=== PATIENT | male | born 1960 | race Caucasian/White ===

== ENCOUNTER 2017-05-23 19:55 | Inpatient (IN) | payer OTHER ==
[~2017-05-23] VITALS: Ht 200.7 cm; Wt 71.0 kg
[2017-05-23 23:00] VITALS: BP 116/74; RESP 18
[2017-05-24 02:00] VITALS: BP 109/70; RESP 20
[2017-05-24] MEDS ORDERED: morphine 2 MG INJ IV PRN (02:30)
[2017-05-24] MEDS ORDERED: ONDANSETRON 4 MG INJ IV PRN (02:30)
[2017-05-24 02:32] LABS: ADD UMIC NO; UR ASCORBIC ACID NEGATIVE (NEGATIVE); UR BILIRUBIN (Dip) NEGATIVE (NEGATIVE); UR BLOOD (Dip) NEGATIVE (NEGATIVE); UR CLARITY CLEAR (CLEAR); UR COLOR YELLOW (YELLOW); UR GLUCOSE (Dip) NEGATIVE (NEGATIVE); UR KETONES (Dip) NEGATIVE (NEGATIVE); UR LEUKOCYTE ESTERASE (Dip) NEGATIVE Leu/ul (NEGATIVE); UR NITRITE (Dip) NEGATIVE (NEGATIVE); UR SPECIFIC GRAVITY (Dip) 1.012 (1.003-1.030); UR TOTAL PROTEIN (Dip) NEGATIVE (NEGATIVE); UR UROBILINOGEN (Dip) NEGATIVE (NEGATIVE)
[2017-05-24 02:44] VITALS: Ht 200.7 cm; Wt 71.0 kg
[2017-05-24] MEDS ORDERED: MAGNESIUM HYDROXIDE 30ML CUP PO PRN (03:00)
[2017-05-24] MEDS ORDERED: ACETAMINOPHEN 325 MG TAB PO PRN (03:00)
[2017-05-24] MEDS ORDERED: BISACODYL 10 MG SUPP PR PRN (03:00)
[2017-05-24] MEDS ORDERED: LACTULOSE 30ML CUP PO PRN (03:00)
[2017-05-24 07:37] LABS: BASOPHILS % 0.2 % (0.0-2.0); EOSINOPHILS # 0.1 10^3/ul (0.0-0.5); EOSINOPHILS % 0.9 % (0.0-7.0); HEMATOCRIT 28.8 % (42.0-52.0); HEMOGLOBIN 9.7 g/dl (14.0-18.0); LYMPHOCYTES # 1.8 10^3/ul (0.8-2.9); LYMPHOCYTES % 19.9 % (15.0-51.0); MEAN CORPUSCULAR HEMOGLOBIN 31.3 pg (29.0-33.0); MEAN CORPUSCULAR HGB CONC 33.7 g/dl (32.0-37.0); MEAN CORPUSCULAR VOLUME 92.9 fl (82.0-101.0); MEAN PLATELET VOLUME 9.7 fl (7.4-10.4); MONOCYTE # 0.7 10^3/ul (0.3-0.9); NEUTROPHIL # 6.5 10^3/ul (1.6-7.5); PLATELET COUNT 277 10^3/UL (140-415); RED CELL DISTRIBUTION WIDTH 12.9 % (11.5-14.5); WHITE BLOOD COUNT 9.2 10^3/ul (4.8-10.8)
[2017-05-24 08:05] VITALS: BP 114/65; RESP 18
[2017-05-24 08:10] LABS: ALBUMIN 3.3 g/dl (3.3-4.9); ALBUMIN/GLOBULIN RATIO 0.84; BILIRUBIN,INDIRECT 1.9 mg/dl (0-1.1); BILIRUBIN,TOTAL 1.9 mg/dl (0.2-1.3); CREATININE 0.76 mg/dl (0.61-1.24); POTASSIUM 3.8 mmol/L (3.5-5.1); TOTAL PROTEIN 7.2 g/dl (6.1-8.1)
[2017-05-24] MEDS: POLYETHYLENE GLYCOL 17 GM PACKET PO SCH (08:48)
[2017-05-24] MEDS: FERROUS SULFATE (EC) 325 MG TAB PO SCH (08:49)
[2017-05-24] MEDS: FAMOTIDINE 20 MG TAB PO SCH ×2 (08:50→21:38)
[2017-05-24] MEDS: morphine (ER) 15 MG TAB PO SCH ×2 (08:50→21:39)
[2017-05-24] MEDS: DOCUSATE SODIUM 100 MG CAP PO SCH ×3 (08:50→21:34)
[2017-05-24] MEDS: ENOXAPARIN 40 MG/0.4 ML SYG SC SCH (08:51)
[2017-05-24] MEDS: METOPROLOL 25 MG TAB PO SCH ×2 (08:52→21:37)
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
[2017-05-24 20:00] VITALS: BP 111/68; RESP 18
[2017-05-24] MEDS: SENNA TAB PO SCH ×2 (21:00→21:34)
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
[2017-05-24 21:37] VITALS: BP 112/67; PULSE 101
[2017-05-25 02:00] VITALS: BP 118/65; RESP 18
[2017-05-25 07:30] VITALS: BP 112/79; RESP 2
[2017-05-25] MEDS: morphine (ER) 15 MG TAB PO SCH ×2 (08:01→21:09)
[2017-05-25] MEDS: DOCUSATE SODIUM 100 MG CAP PO SCH ×2 (08:02→21:08)
[2017-05-25] MEDS: METOPROLOL 25 MG TAB PO SCH ×2 (08:02→21:08)
[2017-05-25] MEDS: FERROUS SULFATE (EC) 325 MG TAB PO SCH (08:02)
[2017-05-25] MEDS: POLYETHYLENE GLYCOL 17 GM PACKET PO SCH (08:02)
[2017-05-25] MEDS: FAMOTIDINE 20 MG TAB PO SCH ×2 (08:02→21:08)
[2017-05-25] MEDS: ENOXAPARIN 40 MG/0.4 ML SYG SC SCH (08:04)
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
[2017-05-25 14:00] VITALS: BP 116/73; RESP 20
[2017-05-25 20:00] VITALS: BP 123/69; RESP 18
[2017-05-25] MEDS: SENNA TAB PO SCH (21:08)
[2017-05-26 02:00] VITALS: BP 119/64; RESP 18
[2017-05-26 07:00] VITALS: BP 116/75; RESP 18
[2017-05-26] MEDS: ENOXAPARIN 40 MG/0.4 ML SYG SC SCH (08:39)
[2017-05-26] MEDS: POLYETHYLENE GLYCOL 17 GM PACKET PO SCH (08:39)
[2017-05-26] MEDS: DOCUSATE SODIUM 100 MG CAP PO SCH ×2 (08:41→20:05)
[2017-05-26] MEDS: METOPROLOL 25 MG TAB PO SCH ×2 (08:41→20:06)
[2017-05-26] MEDS: FAMOTIDINE 20 MG TAB PO SCH ×2 (08:41→20:05)
[2017-05-26] MEDS: morphine (ER) 15 MG TAB PO SCH ×2 (08:41→20:05)
[2017-05-26] MEDS: FERROUS SULFATE (EC) 325 MG TAB PO SCH (08:42)
[2017-05-26 20:00] VITALS: BP 119/76; RESP 18
[2017-05-26] MEDS: SENNA TAB PO SCH (20:05)
[2017-05-27 02:00] VITALS: BP 112/70; RESP 18
[2017-05-27 07:30] VITALS: RESP 20
[2017-05-27] MEDS: HYDROCODONE/APAP (5/325) TAB PO PRN (08:56)
[2017-05-27] MEDS: DOCUSATE SODIUM 100 MG CAP PO SCH ×2 (09:41→20:29)
[2017-05-27] MEDS: METOPROLOL 25 MG TAB PO SCH ×2 (09:42→20:29)
[2017-05-27] MEDS: FAMOTIDINE 20 MG TAB PO SCH ×2 (09:47→20:30)
[2017-05-27] MEDS: POLYETHYLENE GLYCOL 17 GM PACKET PO SCH (09:47)
[2017-05-27] MEDS: FERROUS SULFATE (EC) 325 MG TAB PO SCH (09:47)
[2017-05-27] MEDS: ENOXAPARIN 40 MG/0.4 ML SYG SC SCH (09:54)
[2017-05-27] MEDS: morphine (ER) 15 MG TAB PO SCH ×2 (09:55→20:30)
--- NOTE | 2017-05-27 12:10 | CONS ---
Date/Time of Note Date/Time of Note DATE: 05/27/17 TIME: 12:08 Consult Date/Type/Reason Admit Date/Time May 23, 2017 at 22:38 Objective Vital Signs Date Time Temp Pulse Resp B/P Pulse Ox O2 Delivery O2 Flow Rate FiO2 05/27/17 07:30 98.7 98 20 95 Intake and Output 05/26/17 05/26/17 05/27/17 15:00 23:00 07:00 Intake Total 1920 ml 1200 ml Output Total 800 ml 1000 ml Balance 1120 ml 200 ml INTERDISCIPLINARY TEAM CONFERENCE BOWEL- Cont BLADDER-Cont SKIN- intact OT- DRESSING-mod BATHING-mod TOILETING-mod PT- BED MOBILITY-min TRANSFERS-mod x 2 W.C. MOBILITY-min SPEECH- COGNITION-MS A/P- Interdisciplinary team conference held today. Please see interdisciplinary sheet. Working toward d.c. on 06/01 with post discharge follow up of physical therapy, occupational therapy. Results/Medications Result Diagram: 05/24/17 0620 05/24/17 0620 Medications Current Medications Enoxaparin Sodium (Lovenox) 40 mg DAILY SC Last administered on 05/27/17 09:54 ; Admin Dose 40 MG; Start 05/24/17 at 09:00 Famotidine (Pepcid) 20 mg BID PO Last administered on 05/27/17 09:47; Admin Dose 20 MG; Start 05/24/17 at 09:00 Ferrous Sulfate (Ferrous Sulfate (Ec)) 325 mg DAILY PO Last administered on 09:47; Admin Dose 325 MG; Start 05/24/17 at 09:00 Metoprolol Tartrate (Lopressor) 25 mg BID PO Last administered on 05/27/17 09: 42; Admin Dose 25 MG; Start 05/24/17 at 09:00 Morphine Sulfate (Ms Contin (Er)) 15 mg BID PO Last administered on 05/27/17 09:55; Admin Dose 15 MG; Start 05/24/17 at 09:00 Morphine Sulfate (morphine) 2 mg Q4H PRN IV PAIN LEVEL 7-10; Start 05/24/17 at 02:30 Ondansetron HCl (Zofran Inj) 4 mg Q4H PRN IV NAUSEA AND/OR VOMITING; Start at 02:30 Polyethylene Glycol (Miralax) 17 gm DAILY PO Last administered on 05/27/17 09: 47; Admin Dose 17 GM; Start 05/24/17 at 09:00 Docusate Sodium (Colace) 100 mg BID PO Last administered on 05/27/17 09:41; Admin Dose 100 MG; Start 05/24/17 at 09:00 Senna (Senokot) 1 tab HS PO Last administered on 05/26/17 20:05; Admin Dose 1 TAB; Start 05/24/17 at 21:00 Acetaminophen (Tylenol Tab) 650 mg Q4H PRN PO PAIN; Start 05/24/17 at 03:00 Bisacodyl (Dulcolax Supp) 10 mg DAILY PRN [place] CONSTIPATION; Start 05/24/17 at 03 :00 Magnesium Hydroxide (Milk Of Mag) 30 ml BID PRN PO CONSTIPATION; Start at 03:00 Lactulose (Enulose) 20 gm DAILY PRN PO CONSTIPATION; Start 05/24/17 at 03:00 Acetaminophen/ Hydrocodone Bitart ([place] (5/325)) 1 tab Q4H PRN PO BREAKTHROUGH PAIN Last administered on 05/27/17 08:56; Admin Dose 1 TAB; Start 05/25/17 at 15:00 GERMÁN CARRANZA MD May 27, 2017 12:10
[2017-05-27 14:00] VITALS: BP 112/70; RESP 18
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
[2017-05-27 20:00] VITALS: BP 113/68; PULSE 102; RESP 18
[2017-05-27] MEDS: SENNA TAB PO SCH (20:29)
[2017-05-28 02:00] VITALS: BP 115/72; PULSE 105; RESP 18
[2017-05-28] MEDS: morphine (ER) 15 MG TAB PO SCH ×2 (08:29→20:50)
[2017-05-28] MEDS: FERROUS SULFATE (EC) 325 MG TAB PO SCH (08:30)
[2017-05-28] MEDS: DOCUSATE SODIUM 100 MG CAP PO SCH ×2 (08:30→20:49)
[2017-05-28] MEDS: FAMOTIDINE 20 MG TAB PO SCH ×2 (08:30→20:49)
[2017-05-28] MEDS: METOPROLOL 25 MG TAB PO SCH ×2 (08:30→20:51)
[2017-05-28] MEDS: ENOXAPARIN 40 MG/0.4 ML SYG SC SCH (09:45)
[2017-05-28] MEDS: POLYETHYLENE GLYCOL 17 GM PACKET PO SCH (09:45)
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
[2017-05-28 20:00] VITALS: BP 115/74; PULSE 104; RESP 18
[2017-05-28] MEDS: SENNA TAB PO SCH (20:49)
[2017-05-29 02:00] VITALS: BP 108/72; PULSE 96; RESP 16
[2017-05-29 08:00] VITALS: BP 119/77; PULSE 100; RESP 18
[2017-05-29] MEDS: ENOXAPARIN 40 MG/0.4 ML SYG SC SCH (08:44)
[2017-05-29] MEDS: POLYETHYLENE GLYCOL 17 GM PACKET PO SCH (08:45)
[2017-05-29] MEDS: METOPROLOL 25 MG TAB PO SCH ×2 (08:45→20:54)
[2017-05-29] MEDS: FERROUS SULFATE (EC) 325 MG TAB PO SCH (08:45)
[2017-05-29] MEDS: FAMOTIDINE 20 MG TAB PO SCH ×2 (08:45→20:52)
[2017-05-29] MEDS: DOCUSATE SODIUM 100 MG CAP PO SCH ×2 (08:45→20:52)
[2017-05-29] MEDS: morphine (ER) 15 MG TAB PO SCH (08:46)
[2017-05-29] MEDS: oxyCODONE (CR) 10 MG TAB [oxyCONTIN] PO SCH ×2 (11:58→20:53)
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
[2017-05-29 20:08] VITALS: BP 117/76; RESP 18
[2017-05-29] MEDS: SENNA TAB PO SCH (20:52)
[2017-05-30 02:00] VITALS: BP 144/68; RESP 18
[2017-05-30 07:00] VITALS: BP 109/70; RESP 18
[2017-05-30] MEDS: METOPROLOL 25 MG TAB PO SCH ×2 (08:30→20:56)
[2017-05-30] MEDS: POLYETHYLENE GLYCOL 17 GM PACKET PO SCH (08:30)
[2017-05-30] MEDS: DOCUSATE SODIUM 100 MG CAP PO SCH ×2 (08:30→20:55)
[2017-05-30] MEDS: oxyCODONE (CR) 10 MG TAB [oxyCONTIN] PO SCH ×3 (08:30→20:55)
[2017-05-30] MEDS: FAMOTIDINE 20 MG TAB PO SCH ×2 (08:30→20:56)
[2017-05-30] MEDS: FERROUS SULFATE (EC) 325 MG TAB PO SCH (08:30)
[2017-05-30] MEDS: ENOXAPARIN 40 MG/0.4 ML SYG SC SCH (08:33)
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
[2017-05-30 19:56] VITALS: BP 112/71; RESP 18
[2017-05-30] MEDS: SENNA TAB PO SCH (20:56)
[2017-05-30] MEDS ORDERED: CHLORHEXIDINE GLUCONATE 15 ML UD CUP MT SCH (21:00)
[2017-05-31 02:00] VITALS: BP 120/73; RESP 18
[2017-05-31 07:15] LABS: BASOPHILS % 0.2 % (0.0-2.0); EOSINOPHILS % 0.4 % (0.0-7.0); HEMATOCRIT 29.9 % (42.0-52.0); HEMOGLOBIN 9.9 g/dl (14.0-18.0); LYMPHOCYTES # 1.5 10^3/ul (0.8-2.9); LYMPHOCYTES % 14.7 % (15.0-51.0); MEAN CORPUSCULAR HEMOGLOBIN 30.9 pg (29.0-33.0); MEAN CORPUSCULAR HGB CONC 33.1 g/dl (32.0-37.0); MEAN CORPUSCULAR VOLUME 93.4 fl (82.0-101.0); MEAN PLATELET VOLUME 8.8 fl (7.4-10.4); MONOCYTE # 0.5 10^3/ul (0.3-0.9); MONOCYTES % 4.3 % (0.0-11.0); NEUTROPHIL # 8.3 10^3/ul (1.6-7.5); NEUTROPHILS % 79.7 % (39.0-77.0); PLATELET COUNT 424 10^3/UL (140-415); RED CELL DISTRIBUTION WIDTH 12.6 % (11.5-14.5); WHITE BLOOD COUNT 10.4 10^3/ul (4.8-10.8)
[2017-05-31 07:30] VITALS: BP 110/75; PULSE 103; RESP 18
[2017-05-31 07:48] LABS: CALCIUM 9.1 mg/dl (8.4-10.2); CREATININE 0.75 mg/dl (0.61-1.24); POTASSIUM 3.9 mmol/L (3.5-5.1)
[2017-05-31] MEDS: FAMOTIDINE 20 MG TAB PO SCH ×2 (08:35→20:39)
[2017-05-31] MEDS: oxyCODONE (CR) 10 MG TAB [oxyCONTIN] PO SCH ×3 (08:35→20:38)
[2017-05-31] MEDS: DOCUSATE SODIUM 100 MG CAP PO SCH ×2 (08:35→20:39)
[2017-05-31] MEDS: FERROUS SULFATE (EC) 325 MG TAB PO SCH (08:35)
[2017-05-31] MEDS: METOPROLOL 25 MG TAB PO SCH ×2 (08:36→20:39)
[2017-05-31] MEDS: POLYETHYLENE GLYCOL 17 GM PACKET PO SCH (08:37)
[2017-05-31] MEDS: ENOXAPARIN 40 MG/0.4 ML SYG SC SCH (08:38)
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
[2017-05-31] MEDS: CHLORHEXIDINE GLUCONATE 15 ML UD CUP MT PRN (18:27)
[2017-05-31 20:04] VITALS: BP 110/65; RESP 18
[2017-05-31] MEDS: SENNA TAB PO SCH (20:39)
[2017-06-01 02:00] VITALS: BP 118/68; RESP 18
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
[2017-06-01] MEDS: DOCUSATE SODIUM 100 MG CAP PO SCH ×2 (08:27→21:13)
[2017-06-01] MEDS: FAMOTIDINE 20 MG TAB PO SCH ×2 (08:27→21:14)
[2017-06-01] MEDS: CHLORHEXIDINE GLUCONATE 15 ML UD CUP MT PRN (08:27)
[2017-06-01] MEDS: oxyCODONE (CR) 10 MG TAB [oxyCONTIN] PO SCH ×3 (08:28→21:13)
[2017-06-01] MEDS: FERROUS SULFATE (EC) 325 MG TAB PO SCH (08:28)
[2017-06-01] MEDS: POLYETHYLENE GLYCOL 17 GM PACKET PO SCH (08:29)
[2017-06-01] MEDS: METOPROLOL 25 MG TAB PO SCH ×2 (08:29→21:14)
[2017-06-01] MEDS: ENOXAPARIN 40 MG/0.4 ML SYG SC SCH (08:30)
[2017-06-01] MEDS: HYDROCODONE/APAP (5/325) TAB PO PRN (16:22)
[2017-06-01 20:00] VITALS: BP 107/70; PULSE 94; RESP 18
[2017-06-01] MEDS: SENNA TAB PO SCH (21:14)
[2017-06-02 02:00] VITALS: BP 118/72; PULSE 92; RESP 16
[2017-06-02 08:40] VITALS: BP 106/68; PULSE 87; RESP 16
[2017-06-02] MEDS: oxyCODONE (CR) 10 MG TAB [oxyCONTIN] PO SCH ×3 (08:59→20:29)
[2017-06-02] MEDS: FAMOTIDINE 20 MG TAB PO SCH ×2 (08:59→20:28)
[2017-06-02] MEDS: FERROUS SULFATE (EC) 325 MG TAB PO SCH (08:59)
[2017-06-02] MEDS: DOCUSATE SODIUM 100 MG CAP PO SCH ×2 (08:59→20:29)
[2017-06-02] MEDS: METOPROLOL 25 MG TAB PO SCH ×2 (09:00→20:29)
[2017-06-02] MEDS: POLYETHYLENE GLYCOL 17 GM PACKET PO SCH (09:00)
[2017-06-02] MEDS: ENOXAPARIN 40 MG/0.4 ML SYG SC SCH (09:04)
[2017-06-02 14:00] VITALS: BP 109/70; PULSE 89; RESP 16
[2017-06-02 19:48] VITALS: BP 125/70; RESP 18
[2017-06-02] MEDS: SENNA TAB PO SCH (20:30)
[2017-06-03 02:21] VITALS: BP 119/68; RESP 18
[2017-06-03 07:30] VITALS: BP 110/75; RESP 20
[2017-06-03] MEDS: FAMOTIDINE 20 MG TAB PO SCH ×2 (08:16→20:09)
[2017-06-03] MEDS: oxyCODONE (CR) 10 MG TAB [oxyCONTIN] PO SCH ×3 (08:16→20:24)
[2017-06-03] MEDS: DOCUSATE SODIUM 100 MG CAP PO SCH ×2 (08:16→20:09)
[2017-06-03] MEDS: FERROUS SULFATE (EC) 325 MG TAB PO SCH (08:16)
[2017-06-03] MEDS: POLYETHYLENE GLYCOL 17 GM PACKET PO SCH (08:20)
[2017-06-03] MEDS: ENOXAPARIN 40 MG/0.4 ML SYG SC SCH (08:20)
[2017-06-03] MEDS: METOPROLOL 25 MG TAB PO SCH ×2 (09:00→20:09)
[2017-06-03 09:58] VITALS: BP 100/68; PULSE 88
--- NOTE | 2017-06-03 10:01 | RADRPT ---
PROCEDURE: XR Right Tibia and Fibula. CLINICAL INDICATION: Right lower leg pain. Postop. TECHNIQUE: Two views. Frontal and lateral. COMPARISON: No prior studies are available for comparison. FINDINGS: There has been open reduction and internal fixation of the comminuted fracture of the distal tibia w ith a aleksandar in the shaft of the tibia, 2 locking screws proximally, and 2 locking screws distally. Ali gnment is satisfactory. There is a comminuted fracture of the proximal and distal shaft of the fibul a. Skin richa are present proximally and distally. There is diffuse soft tissue swelling. Articular surfaces are intact. There is no lytic or blastic lesion. IMPRESSION: 1. Satisfactory postoperative appearance of the tibia and fibula. RPTAT: QQ .Andrey Car MD, Date Time Electronically viewed and signed by .Andrey Car MD, on 06/03/2017 10:00 .R/
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
[2017-06-03 14:00] VITALS: BP 107/71; RESP 20
[2017-06-03] MEDS: HYDROCODONE/APAP (5/325) TAB PO PRN (17:43)
[2017-06-03 20:00] VITALS: BP 103/65; RESP 18
[2017-06-03] MEDS: SENNA TAB PO SCH (20:09)
[2017-06-04 02:05] VITALS: BP 114/62; RESP 18
[2017-06-04] MEDS: HYDROCODONE/APAP (5/325) TAB PO PRN (06:31)
[2017-06-04 07:00] VITALS: BP 107/71; RESP 18
[2017-06-04] MEDS: FERROUS SULFATE (EC) 325 MG TAB PO SCH (08:41)
[2017-06-04] MEDS: ENOXAPARIN 40 MG/0.4 ML SYG SC SCH (08:41)
[2017-06-04] MEDS: oxyCODONE (CR) 10 MG TAB [oxyCONTIN] PO SCH ×3 (08:41→21:38)
[2017-06-04] MEDS: FAMOTIDINE 20 MG TAB PO SCH ×2 (08:42→21:38)
[2017-06-04] MEDS: DOCUSATE SODIUM 100 MG CAP PO SCH ×2 (08:42→21:38)
[2017-06-04] MEDS: POLYETHYLENE GLYCOL 17 GM PACKET PO SCH (08:42)
[2017-06-04] MEDS: METOPROLOL 25 MG TAB PO SCH ×2 (08:42→21:40)
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
[2017-06-04] MEDS: SILVER SULFADIAZINE 1% 25 GM CR TOP SCH (12:58)
[2017-06-04 20:00] VITALS: BP 103/67; RESP 18
[2017-06-04] MEDS: SENNA TAB PO SCH (21:00)
[2017-06-05 02:00] VITALS: BP 106/70; PULSE 88; RESP 16
[2017-06-05 07:00] VITALS: BP 111/77; RESP 18
[2017-06-05] MEDS: DOCUSATE SODIUM 100 MG CAP PO SCH ×2 (08:20→21:50)
[2017-06-05] MEDS: METOPROLOL 25 MG TAB PO SCH ×2 (08:20→21:51)
[2017-06-05] MEDS: oxyCODONE (CR) 10 MG TAB [oxyCONTIN] PO SCH (08:20)
[2017-06-05] MEDS: FERROUS SULFATE (EC) 325 MG TAB PO SCH (08:20)
[2017-06-05] MEDS: FAMOTIDINE 20 MG TAB PO SCH ×2 (08:20→21:51)
[2017-06-05] MEDS: POLYETHYLENE GLYCOL 17 GM PACKET PO SCH (08:21)
[2017-06-05] MEDS: SILVER SULFADIAZINE 1% 25 GM CR TOP SCH (08:21)
[2017-06-05] MEDS: ENOXAPARIN 40 MG/0.4 ML SYG SC SCH (08:24)
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
[2017-06-05] MEDS: HYDROCODONE/APAP (10/325) TAB PO SCH ×3 (12:00→21:52)
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
[2017-06-05 20:00] VITALS: BP 112/70; RESP 18
[2017-06-05] MEDS: SENNA TAB PO SCH (21:00)
[2017-06-06 03:04] VITALS: BP 118/68; RESP 18
[2017-06-06 07:30] VITALS: BP 109/70; RESP 18
[2017-06-06] MEDS: FAMOTIDINE 20 MG TAB PO SCH ×2 (09:28→20:52)
[2017-06-06] MEDS: DOCUSATE SODIUM 100 MG CAP PO SCH ×2 (09:28→20:52)
[2017-06-06] MEDS: FERROUS SULFATE (EC) 325 MG TAB PO SCH (09:28)
[2017-06-06] MEDS: METOPROLOL 25 MG TAB PO SCH ×2 (09:29→20:53)
[2017-06-06] MEDS: HYDROCODONE/APAP (10/325) TAB PO SCH ×3 (09:29→20:53)
[2017-06-06] MEDS: POLYETHYLENE GLYCOL 17 GM PACKET PO SCH (09:30)
[2017-06-06] MEDS: SILVER SULFADIAZINE 1% 25 GM CR TOP SCH (09:31)
[2017-06-06] MEDS: ENOXAPARIN 40 MG/0.4 ML SYG SC SCH (09:38)
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
[2017-06-06 19:56] VITALS: BP 103/67; RESP 18
[2017-06-06] MEDS: SENNA TAB PO SCH (20:52)
[2017-06-07 02:00] VITALS: BP 115/75; PULSE 81; RESP 18
[2017-06-07] MEDS: HYDROCODONE/APAP (5/325) TAB PO PRN (03:49)
[2017-06-07 07:30] VITALS: BP 112/75; RESP 18
[2017-06-07] MEDS: SILVER SULFADIAZINE 1% 25 GM CR TOP SCH (08:16)
[2017-06-07] MEDS: FAMOTIDINE 20 MG TAB PO SCH (08:17)
[2017-06-07] MEDS: HYDROCODONE/APAP (10/325) TAB PO SCH (08:17)
[2017-06-07] MEDS: METOPROLOL 25 MG TAB PO SCH (08:18)
[2017-06-07] MEDS: FERROUS SULFATE (EC) 325 MG TAB PO SCH (08:18)
[2017-06-07] MEDS: POLYETHYLENE GLYCOL 17 GM PACKET PO SCH (08:18)
[2017-06-07] MEDS: DOCUSATE SODIUM 100 MG CAP PO SCH (08:18)
[2017-06-07] MEDS: ENOXAPARIN 40 MG/0.4 ML SYG SC SCH (08:20)
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
== END 2017-06-07 11:05 | disposition home health service (06) | DRG 948 ==
LOC: VRC 22:38
PROVIDERS: ADMIT Physical Medicine & Rehabilitation; ATTEND Internal Medicine
DX: G89.11 Acute pain due to trauma (principal); J93.9 Pneumothorax, unspecified; D50.0 Iron deficiency anemia secondary to blood loss (chronic); S82.251D Displaced comminuted fracture of shaft of right tibia, subsequent encounter for closed fracture with routine healing; S22.43XD Multiple fractures of ribs, bilateral, subsequent encounter for fracture with routine healing; S32.019D Unspecified fracture of first lumbar vertebra, subsequent encounter for fracture with routine healing; S22.029D Unspecified fracture of second thoracic vertebra, subsequent encounter for fracture with routine healing; S22.059D Unspecified fracture of T5-T6 vertebra, subsequent encounter for fracture with routine healing; V86.56XD Driver of dirt bike or motor/cross bike injured in nontraffic accident, subsequent encounter; S27.329D Contusion of lung, unspecified, subsequent encounter; R00.0 Tachycardia, unspecified; K06.9 Disorder of gingiva and edentulous alveolar ridge, unspecified; S00.03XD Contusion of scalp, subsequent encounter; Z98.890 Other specified postprocedural states
CPT/HCPCS: 73590; 80048; 80053; 81003; 85025; 87081; 87086; 92507; 92523; 92610; 97110; 97116; 97150; 97163; 97167; 97530; 97535; 97542; J1650